=== PATIENT | female | born 1950 | race Caucasian/White ===

== ENCOUNTER 2017-05-05 08:10 | Emergency (ER) | payer BC ==
[~2017-05-05] VITALS: Ht 170.2 cm; Wt 109.0 kg
[2017-05-05 08:13] VITALS: BP 141/90; PULSE 112; RESP 16; TEMP 98.1; O2SAT 92
[2017-05-05] MEDS ORDERED: VITA1000 PO (08:24)
[2017-05-05] MEDS ORDERED: ROSU1TAB8 PO (08:24)
[2017-05-05] MEDS ORDERED: CETI10 PO (08:24)
[2017-05-05] MEDS ORDERED: METO-309 PO (08:24)
[2017-05-05] MEDS ORDERED: METF500 PO (08:24)
[2017-05-05] MEDS ORDERED: DOCU100C15 PO (08:24)
[2017-05-05] MEDS ORDERED: VENTAER INH (08:24)
[2017-05-05] MEDS ORDERED: PRIL20TA2 PO (08:24)
[2017-05-05] MEDS ORDERED: PYRI100T PO (08:24)
[2017-05-05] MEDS ORDERED: FLUT50SP EACH NARE (08:24)
[2017-05-05] MEDS ORDERED: CYMB30CA PO (08:24)
[2017-05-05] MEDS ORDERED: MONT10TA2 PO (08:24)
[2017-05-05] MEDS ORDERED: VITA500S3 SL (08:24)
[2017-05-05] MEDS ORDERED: FURO1TAB62 PO (08:24)
[2017-05-05] MEDS ORDERED: ASPI-516 CHEW (08:24)
[2017-05-05] MEDS ORDERED: MAGN500T2 PO (08:24)
[2017-05-05] MEDS ORDERED: SODIUM CHLOR 0.9% 1000 ML INJ 1,000 ML IV ONE (08:45)
[2017-05-05] MEDS ORDERED: ONDANSETRON HCL 4 MG/2 ML VIAL IV PUSH ONE (08:45)
[2017-05-05] MEDS ORDERED: ZOFR4TAB PO (08:50)
--- NOTE | 2017-05-05 08:50 | PD ---
HPI Chief Complaint: GI Complaint Time Seen by Provider: 08:36 Travel History International Travel<30 days: No Contact w/Intl Traveler<30days: No Traveled to known affect area: No History of Present Illness HPI Patient presents with complaints of nausea and vomiting since 3 AM this morning. Denies any new or different foods. Denies any camping. Positive recent travel. No recent antibiotics. No known sick contacts. Patient does take Lasix for fluid retention, denies any history of heart failure. PFSH Past Medical History Asthma: Yes Heart Rhythm Problems: Yes High Cholesterol: Yes Cerebrovascular Accident: Yes Diabetes: Yes Patient Takes Glucophage: Yes Diminished Hearing: No GERD: Yes Hypertension: Yes Influenza Vaccination: Yes ?: Not Past Surgical History Section: Yes (three) Hysterectomy: Yes Joint Replacement: Yes (markie knee) Social History Alcohol Use: Yes Tobacco Use: Yes Allergies-Medications (Allergen,Severity, Reaction): Coded Allergies: budesonide (Verified Allergy, Unknown, 05/05/17) codeine (Verified Allergy, Unknown, 05/05/17) gemifloxacin (Verified Allergy, Unknown, 05/05/17) hydroxyzine (Verified Allergy, Unknown, 05/05/17) iodine (Verified Allergy, Unknown, 05/05/17) levofloxacin (Verified Allergy, Unknown, 05/05/17) Reported Meds & Prescriptions Reported Meds & Active Scripts Active Zofran (Ondansetron HCl) 4 Mg Tab 4 Mg PO Q6HR PRN Reported Ventolin Hfa 18 GM Inh (Albuterol Sulfate) 90 Mcg/Act Aer 1 Puff INH Q4H PRN Fluticasone Nasal [place] 50 Mcg/Act Naspr 50 Mcg EACH NARE BID 50 mcg/spray Vitamin B-12 (Cyanocobalamin) 500 Mcg Subl 500 Mcg SL DAILY Vitamin B-6 (Pyridoxine HCl) 100 Mg Tab 100 Mg PO DAILY Vitamin D-1000 (Cholecalciferol) 1,000 Unit Tab 2,000 Units PO DAILY Magnesium Oxide 500 Mg Tab 500 Mg PO DAILY Docusate Sodium 100 Mg Cap 100 Mg PO BID Aspirin 81 Mg Chew 81 Mg CHEW DAILY Glucophage (Metformin HCl) 500 Mg Tab 500 Mg PO DAILY With a meal Lasix (Furosemide) 20 Mg Tab 20 Mg PO DAILY Prilosec (Omeprazole Magnesium) 20 Mg Tab 40 Mg PO BID Singulair (Montelukast Sodium) 10 Mg Tab 10 Mg PO HS Rosuvastatin (Rosuvastatin Calcium) 20 Mg Tab 20 Mg PO HS Lopressor (Metoprolol Tartrate) 50 Mg Tab 25 Mg PO DAILY Cymbalta DR (Duloxetine HCl) 30 Mg Capdr 30 Mg PO DAILY Cetirizine (Cetirizine HCl) 10 Mg Tab 10 Mg PO DAILY Review of Systems General / Constitutional: No: Fever Eyes: No: Visual changes HENT: No: Headaches Cardiovascular: No: Chest Pain or Discomfort Respiratory: No: Shortness of Breath Gastrointestinal: Positive: Nausea, Vomiting, No: Abdominal Pain Genitourinary: No: Dysuria Musculoskeletal: No: Pain Skin: No Rash Neurologic: No: Weakness Psychiatric: No: Depression Endocrine: No: Polydipsia Hematologic/Lymphatic: No: Easy Bruising Physical Exam Narrative GENERAL: Well-nourished, well-developed patient. SKIN: Focused skin assessment warm/dry. HEAD: Normocephalic. EYES: No scleral icterus. No injection or drainage. NECK: Supple, trachea midline. No JVD or lymphadenopathy. CARDIOVASCULAR: Regular rate and rhythm without murmurs, gallops, or rubs. RESPIRATORY: Breath sounds equal bilaterally. No accessory muscle use. GASTROINTESTINAL: Abdomen soft, non-tender, nondistended. MUSCULOSKELETAL: No cyanosis, or edema. BACK: Nontender without obvious deformity. No CVA tenderness. Data Data Last Documented VS Vital Signs Date Time Temp Pulse Resp B/P (MAP) Pulse Ox O2 Delivery O2 Flow Rate FiO2 05/05/17 09:33 97 18 127/86 (100) 99 Room Air 05/05/17 08:13 98.1 Orders Orders Sodium Chlor 0.9% 1000 Ml Inj (Ns 1000 M (05/05/17 08:45) Ondansetron Inj (Zofran Inj) (05/05/17 08:45) [facility] Medical Decision Making Medical Screen Exam Complete: Yes Emergency Medical Condition: Yes Differential Diagnosis Viral gastritis, food poisoning, reflux Narrative Course Assessment and plan discussed with patient and daughter at bedside. Patient received IV fluids and IV Zofran with control of her nausea. Tolerated fluid challenge. Diagnosis Primary Impression: Nausea & vomiting Qualified Codes: R11.2 - Nausea with vomiting, unspecified Patient Instructions: General Instructions Additional Instructions: Encourage fluids and a bland BRAT diet. Anti-emetic as directed. Return to emergency room with any onset of new symptoms. Scripts Ondansetron (Zofran) 4 Mg Tab 4 MG PO Q6HR Y for NAUSEA OR VOMITING, #30 TAB 0 Refills Prov: Marcel Golden MD 05/05/17 Disposition: 01 DISCHARGE HOME Condition: Good Marcel Golden MD May 05, 2017 08:50
[2017-05-05 09:33] VITALS: BP 127/86; PULSE 97; RESP 18; O2SAT 99
== END 2017-05-05 10:33 | disposition home or self-care (01) ==
LOC: PHED 08:10
DX: R11.2 Nausea with vomiting, unspecified (principal); I10 Essential (primary) hypertension; E78.00 Pure hypercholesterolemia, unspecified; E11.9 Type 2 diabetes mellitus without complications; J45.909 Unspecified asthma, uncomplicated; Z72.0 Tobacco use; Z79.84 Long term (current) use of oral hypoglycemic drugs; Z79.899 Other long term (current) drug therapy
CPT/HCPCS: 96361; 96374; 99284; J2405; J7030